=== PATIENT | female | born 1995 | race African-American/Black ===

== ENCOUNTER 2018-07-19 21:11 | Emergency (ER) | payer SELFPAY ==
[2018-07-19] MEDS ORDERED: Bacitracin Zinc 1 Packet ONE (22:11)
== END 2018-07-19 22:21 | disposition home or self-care (01) ==
LOC: ERS 21:11
DX: J30.9 Allergic rhinitis, unspecified (principal); R04.0 Epistaxis; F90.9 Attention-deficit hyperactivity disorder, unspecified type
CPT/HCPCS: 99283

== ENCOUNTER 2025-01-24 08:15 | Emergency (ER) | payer SELFPAY ==
[2025-01-24] MEDS ORDERED: Proparacaine 0.5% Opth 15 ML BOT ONE (08:52)
[2025-01-24] MEDS ORDERED: Fluorescein Opthalmic Strip ONE (08:52)
== END 2025-01-24 09:28 | disposition home or self-care (01) ==
LOC: ERS 08:15
DX: H10.89 Other conjunctivitis (principal); B96.89 Other specified bacterial agents as the cause of diseases classified elsewhere
CPT/HCPCS: 99283